=== PATIENT | female | born 1985 | race Caucasian/White ===

== ENCOUNTER 2017-07-16 14:29 | Emergency (ER) | payer OTHER ==
[~2017-07-16] VITALS: Ht 160 cm; Wt 72.8 kg
[2017-07-16 14:30] VITALS: BP 137/73
[2017-07-16] MEDS ORDERED: IBUP-1022 PO (14:38)
[2017-07-16] MEDS ORDERED: ONDANSETRON 4 MG ORAL DISINTEGRATING TAB (S0181) PO ONE (15:45)
[2017-07-16] MEDS ORDERED: MORPHINE 4 MG/ML 1ML SYRINGE IM ONE (15:45)
[2017-07-16] MEDS ORDERED: ACET30TAB PO (16:03)
== END 2017-07-16 18:28 | disposition home or self-care (01) ==
LOC: M ED 14:29
DX: G89.29 Other chronic pain (principal); R10.2 Pelvic and perineal pain; N80.9 Endometriosis, unspecified; Z88.2 Allergy status to sulfonamides

== ENCOUNTER 2017-08-17 12:24 | Emergency (ER) | payer OTHER ==
[~2017-08-17] VITALS: Ht 160 cm; Wt 75.0 kg
[2017-08-17 12:24] VITALS: BP 135/72
[~2017-08-17 12:24] MED LIST: ACET30TAB PO; IBUP-1022 PO
[2017-08-17] MEDS ORDERED: traMADol 50 MG TAB PO ONE (12:45)
[2017-08-17] MEDS ORDERED: TRAM50TA2 PO (12:47)
== END 2017-08-17 12:55 | disposition home or self-care (01) ==
LOC: M ED 12:24
DX: N80.9 Endometriosis, unspecified (principal); N93.9 Abnormal uterine and vaginal bleeding, unspecified

== ENCOUNTER 2019-11-20 21:06 | Emergency (ER) | payer OTHER ==
[~2019-11-20] VITALS: Ht 160 cm; Wt 71.4 kg
[~2019-11-20 21:06] MED LIST changes: +ACET-716 PO; -ACET30TAB PO; +TRAM50TA2 PO
[2019-11-20 22:07] LABS: BASO # 0.1 10^3/uL (0.0-0.2); BASO % 0.5 % (0.0-1.0); EOS % 0.3 % (0.0-3.0); HEMATOCRIT 39.7 % (36.0-47.0); LYMPH # 2.8 10^3/uL (1.5-5.0); LYMPH % 24.3 % (24.0-44.0); MEAN CORPUSCULAR HEMOGLOBIN 29.3 pg (27.0-33.0); MEAN CORPUSCULAR HGB CONC 32.7 g/dl (32.0-36.5); MEAN CORPUSCULAR VOLUME 89.4 fl (80.0-96.0); MONO # 0.6 10^3/uL (0.0-0.8); MONO % 5.5 % (0.0-5.0); NEUTROPHILS # 7.9 10^3/uL (1.5-8.5); NEUTROPHILS % 69.1 % (36.0-66.0); PLATELET COUNT, AUTOMATED 308 10^3/uL (150-450); RED BLOOD COUNT 4.44 10^6/uL (4.00-5.40); WHITE BLOOD COUNT 11.5 10^3/uL (4.0-10.0)
[2019-11-20 22:36] LABS: ALT/SGPT 13 U/L (12-78); BILIRUBIN,DIRECT < 0.1 MG/DL (0.0-0.2); BILIRUBIN,TOTAL 0.3 MG/DL (0.2-1.0); BLOOD UREA NITROGEN 12 MG/DL (7-18); CALCIUM LEVEL 8.7 MG/DL (8.5-10.1); CARBON DIOXIDE LEVEL 24 MEQ/L (21-32); CHLORIDE LEVEL 106 MEQ/L (98-107); CREATININE FOR GFR 0.79 MG/DL (0.55-1.30); GLOMERULAR FILTRATION RATE > 60.0 (>60); GLUCOSE, FASTING 76 MG/DL (70-100); HCG, SERUM QUANTITATIVE 99346 MIU/ML; LIPASE 98 U/L (73-393); POTASSIUM SERUM 3.9 MEQ/L (3.5-5.1); SODIUM LEVEL 139 MEQ/L (136-145); TOTAL PROTEIN 7.5 GM/DL (6.4-8.2)
--- NOTE | 2019-11-20 23:45 | REPVR ---
PROCEDURE INFORMATION: Exam: US First Trimester, Transabdominal Exam date and time: 11/20/2019 10:49 PM Age: 34 years old Clinical indication: complicated by abdominal or pelvic pain; Lower; First trimester; Gestational age or lmp: 8w1d; ; Additional info: Pelvic cramping, 8 wks preg TECHNIQUE: Imaging protocol: Real-time transabdominal obstetrical ultrasound of the maternal pelvis and a first trimester , less than 14 weeks 0 days, with image documentation. COMPARISON: No relevant prior studies available. FINDINGS: GESTATION: Gestation: There is a single intrauterine gestation. Heart rate: The heart rate is 121 bpm. Placenta: No evidence of subchorionic abnormality. BIOMETRY: Estimated gestational age: The ultrasound estimated gestational age is 8 weeks 1 day. MATERNAL: Uterus: Unremarkable. Cervix: Unremarkable. Right adnexa: There is a 2.4 cm simple right ovarian cyst that may represent a corpus luteum. Left adnexa: Unremarkable. Intraperitoneal: No intraperitoneal free fluid. IMPRESSION: There is a single, viable intrauterine gestation of approximately 8 weeks 1 day. There is a 2.4 cm simple right ovarian cyst likely representing a corpus luteum. No abnormalities. Electronically signed by: Alex Zafar On 11/20/2019 23:45:21 PM
[2019-11-21] VITALS: BP 121/72
== END 2019-11-21 00:02 | disposition home or self-care (01) ==
LOC: M ED 21:06
DX: O99.89 Other specified diseases and conditions complicating pregnancy, childbirth and the puerperium (principal); R10.2 Pelvic and perineal pain; N83.201 Unspecified ovarian cyst, right side; N80.9 Endometriosis, unspecified; O99.330 Smoking (tobacco) complicating pregnancy, unspecified trimester; F17.200 Nicotine dependence, unspecified, uncomplicated; Z3A.00 Weeks of gestation of pregnancy not specified; Z98.890 Other specified postprocedural states; Z88.1 Allergy status to other antibiotic agents; Z88.2 Allergy status to sulfonamides